=== PATIENT | female | born 1995 | race Caucasian/White ===

== ENCOUNTER 2019-03-19 04:23 | Emergency (ER) | payer BC ==
[~2019-03-19] VITALS: Ht 154.9 cm; Wt 59.0 kg
[2019-03-19 05:06] LABS: URINE BILIRUBIN NEGATIVE (Negative); URINE BLOOD NEGATIVE (Negative); URINE CLARITY CLEAR; URINE COLOR YELLOW; URINE GLUCOSE-RANDOM* NEGATIVE (Negative); URINE KETONES NEGATIVE (Negative); URINE LEUKOCYTES-REFLEX NEGATIVE (Negative); URINE NITRITE-REFLEX NEGATIVE (Negative); URINE PROTEIN (DIPSTICK) NEGATIVE (Negative); URINE UROBILINOGEN 0.2 E.U./dl (0.2-1.0)
[2019-03-19 05:15] LABS: ABSOLUTE NEUTROPHILS 5.5 thou/uL (1.4-8.2); EOSINOPHILS 1.1 % (0.0-3.0); HEMATOCRIT 39.6 % (37.0-47.0); HEMOGLOBIN 12.8 gm/dL (12.0-15.0); LYMPHOCYTES 26.2 % (24.0-44.0); MCH 26.1 pg (26.0-34.0); MCHC 32.2 g/dL (28.0-37.0); MONOCYTES 8.8 % (1.0-8.0); PLATELET COUNT 272 thou/uL (150-400); POLYS 62.9 % (36.0-66.0); RBC 4.89 mil/uL (4.20-5.00); RDW 14.3 % (10.5-14.5); WBC 8.8 thou/uL (4.0-11.0)
[2019-03-19 05:16] LABS: CALCIUM 9.1 mg/dL (8.5-10.1); CREATININE 0.6 mg/dL (0.6-1.0); POTASSIUM 4.3 mmol/L (3.5-5.1)
[2019-03-19 05:25] LABS: ALBUMIN 4.2 g/dL (3.4-5.0); TOTAL BILIRUBIN 0.3 mg/dL (<0.1-1.0); TOTAL PROTEIN 7.6 g/dL (6.4-8.2)
[2019-03-19 05:25] LABS: AMP/METHAMP Negative (Negative); BARBITURATES Negative (Negative); BENZODIAZEPINES Negative (Negative); COCAINE Negative (Negative); METHADONE Negative (Negative); OPIATES Negative (Negative); PCP Negative (Negative)
[2019-03-19 16:04] VITALS: BP 117/85
== END 2019-03-19 16:05 | disposition home or self-care (01) ==
LOC: ER 04:23
PROVIDERS: Emergency Medicine
DX: R45.851 Suicidal ideations (principal); R45.81 Low self-esteem; F32.9 Major depressive disorder, single episode, unspecified; F17.210 Nicotine dependence, cigarettes, uncomplicated